=== PATIENT | female | born 1965 | race Caucasian/White ===

== ENCOUNTER 2016-09-20 22:45 | Emergency (ER) | payer MEDICAID, OTHER ==
[~2016-09-20] VITALS: Ht 170.2 cm; Wt 63.5 kg
[2016-09-21 00:23] LABS: Urine Bilirubin Negative (Negative); Urine Blood TRACE /uL (Negative); Urine Color Yellow (Yellow); Urine Glucose Normal (Normal); Urine Ketone Negative (Negative); Urine Nitrite Negative (Negative); Urine RBC 2 /hpf (0 - 4); Urine Squamous Epithelial Cell FEW /hpf (<5); Urine pH 5.5 (5.0-8.0)
[2016-09-21 01:39] VITALS: BP 121/71
[2016-09-21] MEDS ORDERED: IPRATROPIUM BROM 0.5 MG/2.5ML INH SOL NEB ONE (02:15)
[2016-09-21] MEDS ORDERED: methylPREDNISolone SOD SUCC 125 MG/2 ML VL IM ONE (02:15)
[2016-09-21] MEDS ORDERED: ALBUTEROL SULF 2.5 MG/0.5ML(0.5%) NEB SOLN NEB ONE (02:15)
== END 2016-09-21 02:37 | disposition home or self-care (01) ==
LOC: ER 23:05
DX: J45.901 Unspecified asthma with (acute) exacerbation (principal); J40 Bronchitis, not specified as acute or chronic; F17.210 Nicotine dependence, cigarettes, uncomplicated
CPT/HCPCS: 71020; 81001; 94640; 96372; 99285; J2930